=== PATIENT | female | born 1940 | race Asian ===

== ENCOUNTER 2016-07-02 13:42 | Outpatient (CLI) | payer MEDICARE, OTHER | END 2016-07-02 13:43 | disposition home or self-care (01) | DX: J20.9 Acute bronchitis, unspecified (principal) ==

== ENCOUNTER 2017-10-24 19:50 | Emergency (ER) | payer MEDICARE, OTHER ==
[2017-10-24 20:03] VITALS: BP 145/78
[2017-10-24 20:19] LABS: BILIRUBIN,URINE NEGATIVE (NEGATIVE); GLUCOSE, URINE (UA) NEGATIVE (NEGATIVE); KETONES,URINE (UA) NEGATIVE (NEGATIVE); UROBILINOGEN,URINE 0.2 (NORMAL) E.U./dL (NORMAL)
[2017-10-24 20:30] LABS: CLARITY,URINE HAZY (CLEAR)
--- NOTE | 2017-10-24 20:31 | ED Physician Documentation ---
PD HPI FEMALE - Stated complaint Stated Complaint: FEMALE - Chief complaint Chief Complaint: General - History obtained from History obtained from: Patient - History of Present Illness Timing - onset: Today (this morning) Timing - details: Gradual onset Associated symptoms: Dysuria, Urinary frequency. 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 - Past Surgical History Past Surgical History: No /STUD MASTER/MISTRESS: Dilation and currettage - Present Medications Home Medications: Ambulatory Orders Medication Instructions Recorded Confirmed Lisinopril 5 mg PO DAILY 05/29/15 11/17/15 Tamoxifen 10 mg PO DAILY 05/29/15 11/17/15 Aspirin 81 06/03/15 06/03/15 Cyclobenzaprine [Flexeril] 10 mg PO TID PRN #20 tablet 11/15/15 11/17/15 Hydrocodone/Acetaminophen 1 - 2 each PO Q6H PRN #14 tablet 11/15/15 11/17/15 [Hydrocodon-Acetaminophen 5-325] Tolterodine Tartrate [Detrol LA] 4 mg PO DAILY 11/15/15 11/17/15 HYDROcod/ACETAM 5/325 [[place] 5/325] 1 - 2 ea PO Q6H PRN #15 tablet 11/17/15 Nitrofurantoin [Macrodantin] 100 mg PO BID #10 capsule 11/17/15 Nitrofurantoin [Macrobid] 100 mg PO BID #10 capsule 10/24/17 - Allergies Allergies/Adverse Reactions: Allergies Allergy/AdvReac Type Severity Reaction Status Date / Time No Known Drug Allergies Allergy Verified 10/24/17 20:02 - Social History Does the pt smoke?: No Smoking Status: Never smoker Does the pt drink ETOH?: Yes Does the pt have substance abuse?: No - Immunizations Immunizations are current?: Yes - POLST Patient has POLST: No PD ED PE NORMAL - Vitals Vital signs reviewed: Yes - General General: Alert and oriented X 3, No acute distress, Well developed/nourished - Abdomen Abdomen: Soft, Non tender - Back Back: No CVA TTP Results - Vitals Vitals: Oxygen O2 Source Room air - Labs Labs: Microbiology 10/24/17 20:00 Urine Culture - Preliminary Urine,Clean Catch CULTURE IN PROGRESS. RESULTS TO FOLLOW. Laboratory Tests 10/24/17 20:00 Urine Color ORANGE Urine Clarity HAZY Urine pH 6.0 Ur Specific [place] <=1.005 Urine Protein Urine Glucose (UA) NEGATIVE Urine Ketones NEGATIVE Urine Occult Blood Urine Nitrite Urine Bilirubin NEGATIVE Urine Urobilinogen 0.2 (NORMAL) Ur Leukocyte Esterase Urine RBC 6-10 H Urine WBC >25 H Urine WBC Clumps PRESENT Ur Squamous Epith Cells RARE Squamous Urine Bacteria Moderate H Ur Microscopic Review INDICATED Urine Culture Comments INDICATED PD MEDICAL DECISION MAKING - ED course Complexity details: reviewed results, considered differential, d/w patient Departure - Departure Disposition: 01 Home, Self Care Clinical Impression: UTI (urinary tract infection) Condition: Good Instructions: ED UTI Cystitis Female Follow-Up: Romel Mckeon MD [Primary Care Provider] - (3-5 days if symptoms are not resolving, or if not completely resolved after finishing the antibiotic) Prescriptions: Nitrofurantoin [Macrobid] 100 mg PO BID #10 capsule Discharge Date/Time: 10/24/17 20:53
[2017-10-24 20:36] LABS: WBC CLUMPS,URINE PRESENT
[2017-10-24 20:37] LABS: BACTERIA,URINE Moderate /HPF (None Seen); SQUAMOUS EPITHELIAL CELL,UR RARE Squamous (<= Few)
[2017-10-24] MEDS ORDERED: NITROFURANTOIN MACRO 100 MG CAPSULE PO STA (20:48)
== END 2017-10-24 20:53 | disposition home or self-care (01) ==
LOC: ED 19:50
DX: N39.0 Urinary tract infection, site not specified (principal); I10 Essential (primary) hypertension; Z79.82 Long term (current) use of aspirin
CPT/HCPCS: 81001; 87086; 99283; A9270; 81003

== ENCOUNTER 2018-08-02 14:54 | Emergency (ER) | payer MEDICARE, OTHER ==
[2018-08-02 15:03] VITALS: BP 130/64
[2018-08-02 15:17] LABS: BILIRUBIN,URINE NEGATIVE (NEGATIVE); GLUCOSE, URINE (UA) NEGATIVE (NEGATIVE); KETONES,URINE (UA) NEGATIVE (NEGATIVE); LEUKOCYTE ESTERASE, URINE LARGE (NEGATIVE); NITRITE,URINE POSITIVE (NEGATIVE); OCCULT BLOOD,URINE SMALL (NEGATIVE); PH,URINE 7.5 PH (5.0-7.5); PROTEIN,URINE TRACE mg/dL (NEGATIVE); UROBILINOGEN,URINE 1 (NORMAL) E.U./dL (NORMAL)
[2018-08-02 15:18] LABS: CLARITY,URINE HAZY (CLEAR)
[2018-08-02 15:29] LABS: EPITHELIAL CELLS,UR FEW Transitional /HPF (<= Few); SQUAMOUS EPITHELIAL CELL,UR NONE SEEN (<= Few)
[2018-08-02 15:30] LABS: BACTERIA,URINE Few /HPF (None Seen)
--- NOTE | 2018-08-02 15:36 | ED Physician Documentation ---
PD HPI FEMALE - Stated complaint Stated Complaint: FEMALE - Chief complaint Chief Complaint: UTI - History obtained from History obtained from: Patient - History of Present Illness Timing - onset: How many days ago (3) Timing - duration: Days (3) Timing - details: Gradual onset Pain level max: 3 Pain level max: 3 Associated symptoms: Dysuria Contributing factors: Other (none) Similar symptoms before: Diagnosis (UTI) Review of Systems Constitutional: reports: Reviewed and negative Eyes: reports: Reviewed and negative Ears: reports: Reviewed and negative Nose: reports: Reviewed and negative Throat: reports: Reviewed and negative Cardiac: reports: Reviewed and negative Respiratory: reports: Reviewed and negative GI: reports: Reviewed and negative : reports: Reviewed and negative Skin: reports: Reviewed and negative Musculoskeletal: reports: Reviewed and negative Neurologic: reports: Reviewed and negative Psychiatric: reports: Reviewed and negative Endocrine: reports: Reviewed and negative Immunocompromised: reports: Reviewed and negative PD PAST MEDICAL HISTORY - Past Medical History Past Medical History: Yes 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: Hypertension 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 - Past Surgical History Past Surgical History: Yes /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 TECHNICIAN: Dilation and currettage - Present Medications Home Medications: Ambulatory Orders Medication Instructions Recorded Confirmed Lisinopril 5 mg PO DAILY 05/29/15 11/17/15 Tamoxifen 10 mg PO DAILY 05/29/15 11/17/15 Aspirin 81 06/03/15 06/03/15 Cyclobenzaprine [Flexeril] 10 mg PO TID PRN #20 tablet 11/15/15 11/17/15 Hydrocodone/Acetaminophen 1 - 2 each PO Q6H PRN #14 tablet 11/15/15 11/17/15 [Hydrocodon-Acetaminophen 5-325] Tolterodine Tartrate [Detrol LA] 4 mg PO DAILY 11/15/15 11/17/15 HYDROcod/ACETAM 5/325 [[place] 5/325] 1 - 2 ea PO Q6H PRN #15 tablet 11/17/15 Nitrofurantoin [Macrodantin] 100 mg PO BID #10 capsule 11/17/15 Nitrofurantoin [Macrobid] 100 mg PO BID #10 capsule 10/24/17 Nitrofurantoin Monohyd/M-Cryst 100 mg PO BID #10 capsule 08/02/18 [Macrobid 100 mg Capsule] - Allergies Allergies/Adverse Reactions: Allergies Allergy/AdvReac Type Severity Reaction Status Date / Time No Known Drug Allergies Allergy Verified 08/02/18 15:02 - Living Situation Living Situation: reports: With spouse/s.o. Living Arrangement: reports: At home - Social History Does the pt smoke?: No Smoking Status: Never smoker Does the pt drink ETOH?: Yes Does the pt have substance abuse?: No - Family History Family history: reports: Other (Reviewed and not pertinent) - Immunizations Immunizations are current?: Yes - POLST Patient has POLST: No PD ED PE NORMAL - Vitals Vital signs reviewed: Yes - General General: Alert and oriented X 3, No acute distress - HEENT HEENT: PERRL - Neck Neck: Supple, no meningeal sign - Cardiac Cardiac: RRR, No murmur - Respiratory Respiratory: Clear bilaterally - Abdomen Abdomen: Normal bowel sounds, Soft, Non tender, Non distended - Derm Derm: Warm and dry - Extremities Extremities: No deformity - Neuro Neuro: Alert and oriented X 3 - Psych Psych: Normal mood, Normal affect Results - Vitals Vitals: Vital Signs - 24 hr 08/02/18 15:01 Temperature 36.8 C Heart Rate 94 Respiratory 18 Rate Blood Pressure 130/64 O2 Saturation 95 Oxygen O2 Source Room air - Labs Labs: Laboratory Tests 08/02/18 15:05 Urine Color YELLOW Urine Clarity HAZY Urine pH 7.5 Ur Specific [place] 1.010 Urine Protein TRACE Urine Glucose (UA) NEGATIVE Urine Ketones NEGATIVE Urine Occult Blood SMALL H Urine Nitrite POSITIVE H Urine Bilirubin NEGATIVE Urine Urobilinogen 1 (NORMAL) Ur Leukocyte Esterase LARGE H Urine RBC 6-10 H Urine WBC >25 H Ur Epithelial Cells FEW Transitional Ur Squamous Epith Cells NONE SEEN Urine Bacteria Few Ur Microscopic Review INDICATED Urine Culture Comments INDICATED PD MEDICAL DECISION MAKING - ED course Complexity details: reviewed old records, reviewed results, considered differential ED course: 78-year-old female with dysuria. Urinalysis is consistent with infection. Patient discharged on Macrobid.Vitals reassuring with no sign of pyelonephritis or sepsis. Departure - Departure Disposition: 01 Home, Self Care Clinical Impression: Cystitis UTI (urinary tract infection) Qualifiers: Urinary tract infection type: acute cystitis Condition: Good Instructions: Urinary Tract Infecs Women Follow-Up: Romel Mckeon MD [Primary Care Provider] - Prescriptions: Nitrofurantoin Monohyd/M-Cryst [Macrobid 100 mg Capsule] 100 mg PO BID #10 capsule
== END 2018-08-02 15:48 | disposition home or self-care (01) ==
LOC: ED 14:54
DX: N30.00 Acute cystitis without hematuria (principal); I10 Essential (primary) hypertension; Z79.82 Long term (current) use of aspirin
CPT/HCPCS: 81001; 81003; 87086; 87181; 99283

== ENCOUNTER 2018-09-22 10:23 | Outpatient (CLI) | payer MEDICARE, OTHER ==
--- NOTE | 2018-09-22 13:12 | DEXA Report ---
Reason: DISORDER OF BONE Procedure Date: 09/22/2018 Accession Number: [id number] / [id number] Procedure: DEX - Dexa Spine and/or Hip CPT Code: FULL RESULT: EXAM: Dexa Spine and/or Hip DATE: 09/22/2018 10:58 AM CLINICAL HISTORY: DISORDER OF BONE TECHNIQUE: Dual energy x-ray absorptiometry (DXA) was performed on a NeedFeed System. Regions measured are the AP Spine, femoral neck, and if needed forearm. COMPARISON: 01/02/2016 In accordance with the International Society for Clinical Densitometry (ISCD) guidelines, data from previous exams may be reanalyzed using current recommendations and techniques. This is done to allow a more accurate basis for comparison with the current study. FINDINGS: The data for the lumbar spine is as follows: BMD (g/cm/cm) T-SCORE Z-SCORE REGION L1 0.856 -2.3 0.2 L2 0.812 -3.2 -0.7 L3 0.962 -2.0 0.5 L4 1.030 -1.4 1.1 TOTAL 0.924 -2.1 0.4 NOTE: All evaluable vertebrae are used for classification Compared to 01/02/2016, the 2.5% interval bone density loss is well within annual physiologic change. The data for the hip is as follows: BMD (g/cm/cm) T-SCORE Z-SCORE REGION Neck 0.581 -3.3 -0.8 TOTAL 0.670 -2.7 -0.3 NOTE: The femoral neck or total proximal femur, whichever is lowest, is used for classification. When compared to the 01/02/2016 examination, there has been no significant change in the femoral bone density. IMPRESSION: THE WHO CLASSIFICATION BASED ON THE INTERNATIONAL REFERENCE STANDARD IS OSTEOPOROSIS. THE FRACTURE RISK IS HIGH. RECOMMENDATION: Patients with diagnosis of osteoporosis or osteopenia should have regular bone mineral density assessment. For those eligible for Medicare, routine testing is allowed once every 2 years. Testing frequency can be increased for patients who have rapidly progressing disease or for those who are receiving medical therapy to restore bone mass. COMMENT: World Health Organization (WHO) definitions for osteoporosis and osteopenia: NORMAL BMD: T-score at -1.0 or higher, fracture risk is low OSTEOPENIA BMD: T-score between -1.0 and -2.5, fracture risk is increased. OSTEOPOROSIS BMD: T-score at -2.5 or lower, fracture risk is high. National Osteoporosis Foundation recommends: 1. Obtain adequate dietary calcium (at least 1200 mg per day) and vitamin D (400-800 international units per day). 2. Participate, as appropriate, in regular weightbearing and muscle-strengthening exercise. 3. Avoid tobacco use and reduce alcohol and caffeine intake. 4. For more detailed information see the website at www.NOF.org.
== END 2018-09-22 10:24 | disposition home or self-care (01) ==
LOC: DI 10:23
PROVIDERS: ATTEND Internal Medicine
DX: M81.0 Age-related osteoporosis without current pathological fracture (principal)
CPT/HCPCS: 77080

== ENCOUNTER 2018-10-10 08:15 | Outpatient (CLI) | payer MEDICARE, OTHER ==
--- NOTE | 2018-10-12 09:48 | Ultrasound Report ---
Reason: HTN Procedure Date: 10/10/2018 Accession Number: [id number] / [id number] Procedure: US - Aorta Screening CPT Code: FULL RESULT: EXAM: AORTIC DOPPLER ULTRASOUND EXAM DATE: 10/10/2018 08:38 AM. CLINICAL HISTORY: Hypertension. COMPARISON: None. TECHNIQUE: Real-time sonographic imaging of retroperitoneal vascular structures, including color-flow, Doppler flow and spectral analysis was performed by the nuclear technician. Multiple direct sales representative static images were saved for review. FINDINGS: Aorta: The abdominal aorta was adequately visualized. No evidence for abdominal aortic aneurysm. Visually, there is atherosclerotic disease in the abdominal aorta. Aorta: Proximal: Sagittal AP: 2 cm. Mid: Transverse: 1.5 x 1.6 cm. Distal: Transverse: 1.5 x 1.4 cm. Caliber WNL: Yes. Plaque visualized: Yes. Mid. Iliacs: Right Iliac: Transverse: 0.6 x 0.6 cm. Left Iliac: Transverse: 0.6 x 0.7 cm. Iliac Vessels: The visualized proximal common iliac arteries are normal in caliber. Other: None. IMPRESSION: Atherosclerosis without aneurysm. [facility]
== END 2018-10-10 08:16 | disposition home or self-care (01) ==
LOC: DI 08:15
PROVIDERS: ATTEND Internal Medicine
DX: I10 Essential (primary) hypertension (principal); I70.0 Atherosclerosis of aorta
CPT/HCPCS: 76706

== ENCOUNTER 2020-02-04 17:46 | Emergency (ER) | payer MEDICARE, OTHER ==
--- NOTE | 2020-02-04 19:14 | ED Physician Documentation ---
History of Present Illness - Stated complaint Stated Complaint: URI - Chief complaint Chief Complaint: General - History obtained from History obtained from: Patient - History of Present Illness Timing: How many weeks ago (1.5) Pain level max: 0 Pain level now: 0 - Additonal information Additional information: 79-year-old female presents to the emergency department complaining of clear phlegm for the past week or so. She states she felt warm today and took her temperature. Her T-max was 99.2. She is concerned about potential COVID. No known exposures. No cough. Nothing makes it better or worse. No difficulty breathing. No chest pain. No nausea or vomiting. No sore throat. 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 - Present Medications Home Medications: Ambulatory Orders Medication Instructions Recorded Confirmed Tamoxifen [(None)] 10 mg PO DAILY 05/29/15 11/17/15 lisinopriL [Lisinopril] 5 mg PO DAILY 05/29/15 11/17/15 Aspirin 81 06/03/15 06/03/15 Cyclobenzaprine [Flexeril] 10 mg PO TID PRN #20 tablet 11/15/15 11/17/15 Hydrocodone/Acetaminophen 1 - 2 each PO Q6H PRN #14 tablet 11/15/15 11/17/15 [Hydrocodon-Acetaminophen 5-325] Tolterodine Tartrate [Detrol LA] 4 mg PO DAILY 11/15/15 11/17/15 HYDROcod/ACETAM 5/325 [[place] 5/325] 1 - 2 ea PO Q6H PRN #15 tablet 11/17/15 Nitrofurantoin [Macrodantin] 100 mg PO BID #10 capsule 11/17/15 Nitrofurantoin [Macrobid] 100 mg PO BID #10 capsule 10/24/17 Nitrofurantoin Monohyd/M-Cryst 100 mg PO BID #10 capsule 08/02/18 [Macrobid 100 mg Capsule] Cetirizine [ZyrTEC] 10 mg PO DAILY #14 tablet 02/04/20 - Allergies Allergies/Adverse Reactions: Allergies Allergy/AdvReac Type Severity Reaction Status Date / Time No Known Drug Allergies Allergy Verified 02/04/20 17:55 - Social History Does the pt smoke?: No Smoking Status: Never smoker Does the pt drink ETOH?: Yes Does the pt have substance abuse?: No - Immunizations Immunizations are current?: Yes - POLST Patient has POLST: No PD ED PE NORMAL - Vitals Vital signs reviewed: Yes - General General: Alert and oriented X 3, No acute distress - HEENT HEENT: PERRL, Ears normal, Moist mucous membranes, Other - Neck Neck: Supple, no meningeal sign, No adenopathy - Cardiac Cardiac: RRR, Strong equal pulses - Respiratory Respiratory: No respiratory distress, Clear bilaterally - Abdomen Abdomen: Soft, Non tender, Non distended - Derm Derm: Warm and dry, No rash - Neuro Neuro: Alert and oriented X 3 - Psych Psych: Normal mood, Normal affect Results - Vitals Vitals: Vital Signs - 24 hr 02/04/20 02/04/20 17:50 19:26 Temperature 37.1 C Heart Rate 89 84 Respiratory 20 18 Rate Blood Pressure 166/78 H 161/86 H O2 Saturation 98 98 Oxygen O2 Source Room air PD MEDICAL DECISION MAKING - ED course Complexity details: considered differential, d/w patient ED course: Patient with what appears to be postnasal drip. She can try Zyrtec or Claritin at home. COVID testing was performed. Patient is well-appearing, nontoxic. Afebrile. No hypoxia. No respiratory distress. No indication for x-ray. Patient counseled regarding signs and symptoms for which I believe and urgent re-evaluation would be necessary. Patient with good understanding of and agreement to plan and is comfortable going home at this time This document was made in part using voice recognition software. While efforts are made to proofread this document, sound alike and grammatical errors may occur. Departure - Departure Disposition: 01 Home, Self Care Clinical Impression: Phlegm in throat Condition: Good Instructions: ED Allergy Seasonal Follow-Up: Romel Mckeon MD [Primary Care Provider] - Within 1 week Prescriptions: Cetirizine [ZyrTEC] 10 mg PO DAILY #14 tablet Comments: Use the medications as prescribed. Return if you worsen. Follow-up with your doctor for further care. The COVID tests will normally take 24 to 48 hours to return. Discharge Date/Time: 02/04/20 19:26
[2020-02-04 19:27] VITALS: BP 161/86
== END 2020-02-04 19:26 | disposition home or self-care (01) ==
LOC: ED 17:46
DX: R09.82 Postnasal drip (principal); Z20.828 Contact with and (suspected) exposure to other viral communicable diseases; I10 Essential (primary) hypertension; Z79.82 Long term (current) use of aspirin
CPT/HCPCS: 99283; 99284; U0004

== ENCOUNTER 2020-11-17 13:33 | Outpatient (CLI) | payer MEDICARE, OTHER ==
--- NOTE | 2020-11-17 14:37 | XRAY Report ---
PROCEDURE: Hand 3 View BILAT INDICATIONS: OSTEOARTHRITIS TECHNIQUE: 3 views of the hand(s) acquired. COMPARISON: None. FINDINGS: Bones: Post fusion changes are noted involving right first interphalangeal joint, second and fifth D IP joints. Severe osteoarthritic changes are noted involving bilateral first CMC joints, left second through fifth DIP joints, left second, third and fifth DIP joints, left first interphalangeal joint, right. And fourth PIP and DIP joints and right second PIP joint. There are features suggestive of ero sive osteoarthritis throughout interphalangeal joints. No acute fracture or dislocation. No gross macy dware loosening or failure.. No suspicious bony lesions. Soft tissues: No suspicious soft tissue calcifications. IMPRESSION: 1. Postsurgical changes in right hand as above. No gross hardware complication. 2. 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 Reviewed by: Marko Crook MD on 11/17/2020 2:36 PM PDT Approved by: Marko Crook MD on 11/17/2020 2:36 PM PDT Station ID: [id number]
== END 2020-11-17 13:34 | disposition home or self-care (01) ==
LOC: DI 13:33
PROVIDERS: ATTEND Internal Medicine
DX: M19.042 Primary osteoarthritis, left hand (principal); M19.041 Primary osteoarthritis, right hand

== ENCOUNTER 2021-04-15 16:16 | Emergency (ER) | payer MEDICARE, OTHER ==
[2021-04-15 16:46] LABS: BASOPHILS % (AUTO) 0.2 %; EOSINOPHILS # (AUTO) 0.1 10^3/uL (0.0-0.7); HCT - HEMATOCRIT 43.4 % (37.0-47.0); HGB - HEMOGLOBIN 14.4 g/dL (12.0-16.0); LYMPHOCYTES # (AUTO) 1.9 10^3/uL (1.5-3.5); MEAN CORPUSCULAR HEMOGLOBIN 31.9 pg (27.0-31.0); MEAN CORPUSCULAR HGB CONC 33.2 g/dL (32.0-36.0); MEAN PLATELET VOLUME 8.2 fL (7.9-10.8); MONOCYTES # (AUTO) 0.5 10^3/uL (0.0-1.0); MONOCYTES % (AUTO) 7.7 %; NEUTROPHILS # (AUTO) 3.4 10^3/uL (1.5-6.6); NEUTROPHILS % (AUTO) 58.8 %; PLT - PLATELET COUNT 243 10^3/uL (130-450); RED BLOOD COUNT 4.52 10^6/uL (4.20-5.40); RED CELL DISTRIBUTION WIDTH 11.1 % (12.0-15.0); WHITE BLOOD COUNT 5.8 x10^3/uL (4.8-10.8)
[2021-04-15 17:00] LABS: ALBUMIN 3.9 g/dL (3.2-5.5); ALBUMIN/GLOBULIN RATIO 1.2 (1.0-2.2); BILIRUBIN,TOTAL 0.5 mg/dL (0.2-1.0); CALCIUM 9.2 mg/dL (8.5-10.3); CREATININE 0.6 mg/dL (0.4-1.0); POTASSIUM 4.3 mmol/L (3.5-5.0); TOTAL PROTEIN 7.2 g/dL (6.7-8.2)
--- NOTE | 2021-04-15 17:09 | XRAY Report ---
PROCEDURE: Chest 1 View X-Ray INDICATIONS: Chest pain TECHNIQUE: One view of the chest was acquired. COMPARISON: 07/02/2016 FINDINGS: Surgical changes and devices: None. Lungs and pleura: No pleural effusions or pneumothorax. Lungs are clear. Mediastinum: The aorta is prominent and tortuous. The cardiac contours are within normal limits. Bones and chest wall: No suspicious bony lesions. Age-appropriate degenerative changes are seen. S -shaped scoliotic curvature is incidentally noted. Overlying soft tissues appear unremarkable. IMPRESSION: No acute cardiopulmonary process is seen. No significant change compared to 2017. Reviewed by: Bin Luciano MD on 04/15/2021 4:08 PM [facility] Approved by: Bin Luciano MD on 04/15/2021 4:08 PM [facility] Station ID: [id number]
--- NOTE | 2021-04-15 18:44 | ED Physician Documentation ---
History of Present Illness - Stated complaint Stated Complaint: HBP/DIZZY X3 DAYS - Chief complaint Chief Complaint: Neuro - Additonal information Additional information: 80-year-old female who has a history of hypertension presents the emergency department for feeling lightheaded, dizzy over the last 2 days. She is endorsing some right-sided neck pain as well. She typically takes lisinopril 5 mg twice daily. Over the last 2 days she has checked her blood pressures and noted that they are higher than they typically are sometimes up into the 170s over 90s. She has had no vision changes. No nausea or vomiting. She denies chest pain or shortness of air. She was discussing these blood pressures with her son and he told her that they were too high and she could have a stroke therefore he asked her to come to the ER. No tobacco or alcohol use. No previous history of myocardial infarction or CVA. Review of Systems Constitutional: denies: Fever, Chills Eyes: denies: Loss of vision, Decreased vision Ears: reports: Reviewed and negative Nose: reports: Reviewed and negative Throat: reports: Reviewed and negative Cardiac: denies: Chest pain / pressure, Palpitations Respiratory: denies: Dyspnea, Cough GI: denies: Abdominal Pain, Nausea, Vomiting : denies: Dysuria, Frequency, Hesitancy Skin: denies: Rash, Lesions Musculoskeletal: reports: Neck pain Neurologic: reports: Near syncope. 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 - Past Surgical History Past Surgical History: Yes /SPA MANAGER/ESTHETICIAN: Dilation and currettage - Present Medications Home Medications: Ambulatory Orders Medication Instructions Recorded Confirmed lisinopriL [Lisinopril] 5 mg PO DAILY 05/29/15 04/15/21 Aspirin Chewable [St Polo 81 mg PO DAILY 04/15/21 04/15/21 Aspirin] Rosuvastatin Calcium [Crestor] 5 mg PO DAILY 04/15/21 04/15/21 - Allergies Allergies/Adverse Reactions: Allergies Allergy/AdvReac Type Severity Reaction Status Date / Time No Known Drug Allergies Allergy Verified 04/15/21 16:30 - Social History Does the pt smoke?: No Smoking Status: Never smoker Does the pt drink ETOH?: Yes Does the pt have substance abuse?: No - Immunizations Immunizations are current?: Yes - POLST Patient has POLST: No PD ED PE NORMAL - General General: Alert and oriented X 3 - HEENT HEENT: Atraumatic, Ears normal, Moist mucous membranes - Neck Neck: Supple, no meningeal sign, No adenopathy - Cardiac Cardiac: RRR, No murmur - Respiratory Respiratory: No respiratory distress - Abdomen Abdomen: Normal bowel sounds, Soft - Back Back: No CVA TTP, No spinal TTP - Derm Derm: Normal color, Warm and dry, No rash - Extremities Extremities: No deformity, No tenderness to palpate, Normal ROM s pain - Neuro Neuro: Alert and oriented X 3, battery tester and repairer 2-12 intact, No motor deficit, No sensory deficit, Normal speech, Other (normal gait, finger nose and rapid alternating. ) Eye Opening: Spontaneous Motor: Obeys Commands Verbal: Oriented GCS Score: 15 - Psych Psych: Normal mood Results - Vitals Vitals: Vital Signs - 24 hr 04/15/21 04/15/21 16:27 18:16 Temperature 37.0 C Heart Rate 92 94 Respiratory 16 16 Rate Blood Pressure 162/85 H 145/80 H O2 Saturation 98 99 Oxygen O2 Source Room air - EKG (time done) 1736 Rate: Rate (enter#) (89) Rhythm: NSR Mentor: Normal Intervals: Normal MI. No: Prolonged QT QRS: Normal Ischemia: Normal ST segments Compare to prior EKG: Old EKG unavailable Computer interpretation: Agree with computer - Labs Labs: Laboratory Tests 04/15/21 04/15/21 04/15/21 16:41 16:41 16:41 WBC 5.8 RBC 4.52 Hgb 14.4 Hct 43.4 MCV 96.0 MCH 31.9 H MCHC 33.2 RDW 11.1 L Plt Count 243 MPV 8.2 Neut # (Auto) 3.4 Lymph # (Auto) 1.9 Cass # (Auto) 0.5 Eos # (Auto) 0.1 Baso # (Auto) 0.0 Absolute Nucleated RBC 0.00 Nucleated RBC % 0.0 Sodium 130 L Potassium 4.3 Chloride 94 L Carbon Dioxide 27 Anion Gap 9.0 BUN 14 Creatinine 0.6 Estimated GFR (MDRD) 96 Glucose 110 H Calcium 9.2 Total Bilirubin 0.5 AST 26 ALT 20 Alkaline Phosphatase 48 Troponin I High Sens 6.5 Total Protein 7.2 Albumin 3.9 Globulin 3.3 Albumin/Globulin Ratio 1.2 Lipase 35 - Rads (name of study) CXR Radiology: Final report received (no acute process) CT head Radiology: Final report received (no acute intracranial process) PD MEDICAL DECISION MAKING - ED course Complexity details: reviewed results, re-evaluated patient ED course: 80-year-old female presents the emergency department for evaluation of elevated blood pressures for the last 2 days as well as feeling somewhat lightheaded and dizzy. She typically takes lisinopril 5 mg twice daily and has not missed any doses. No tobacco or alcohol use. She discussed her elevated blood pressure readings with her son who advised her to come to the ER because he was afraid she would have a stroke. She denies any headache, no focal neuro deficits or changes in gait. Screening EKG is nonischemic and unremarkable for age. Chest x-ray and screening labs are also unremarkable. Patient was very fixated that she would have a stroke and out of an abundance of caution a CT of the head was completed that did not show any abnormal findings. In addition to this she had a nonfocal neuro exam and a normal cerebellar exam and gait. Her blood pressure was modestly elevated here in the ER in the 160s. Given DALILA recommendations I did not make adjustments to her blood pressure but have advised her to have close follow-up with her primary care provider for longer- term management. Emergent return precautions were discussed. Departure - Departure Disposition: 01 Home, Self Care Clinical Impression: Light-headed feeling, Neck pain on right side Hypertension Qualifiers: Hypertension type: unspecified Qualified Code(s): I10 - Essential (primary) hypertension Condition: Stable Record reviewed to determine appropriate education?: Yes Instructions: Hypertension Control Follow-Up: Romel Mckeon MD [Primary Care Provider] - Comments: Bella Menezes you were seen in the emergency department today for concerns of elevated blood pressure and feeling lightheaded. Your screening labs are all essentially normal. Your blood count is normal you are not having a heart attack. The chest x-ray was normal. We did do a CAT scan of your head that also showed no abnormal findings. Your blood pressure is modestly elevated today in the emergency department in the 160s. Though this is elevated we do not make recommendations for changing your blood pressure at this time. Please follow-up with Dr. Brooks you to discuss your blood pressure readings. I encourage you to continue to take the lisinopril as you are and document your blood pressures 1 hour after taking the lisinopril and at night before you go to bed. If any point you have sudden severe chest pain, have any fainting spells or become short of breath or develop a suddenly severe headache then please return immediately to the ER for second evaluation
--- NOTE | 2021-04-15 19:05 | CT Report ---
PROCEDURE: HEAD WO INDICATIONS: dizzy, headache TECHNIQUE: Noncontrast 4.5 mm thick angled axial sections acquired from the foramen magnum to the vertex. For r adiation dose reduction, the following was used: automated exposure control, adjustment of mA and/or kV according to patient size. COMPARISON: None. FINDINGS: Image quality: Excellent. CSF spaces: Basal cisterns are patent. No extra-axial fluid collections. There is mild cerebral vol ume loss with prominence of ventricles and sulci. Brain: No intracranial hemorrhage, mass, or mass effect. Clifford-white matter interface is normal. Skull and face: Calvarium and visualized facial bones are intact, without suspicious lesions. Sinuses: Visualized sinuses and mastoids are clear. IMPRESSION: 1. No acute intracranial abnormality. Reviewed by: Elias Thompson MD on 04/15/2021 7:04 PM [facility] Approved by: Elias Thompson MD on 04/15/2021 7:04 PM [facility] Station ID: [id number]
[2021-04-15 19:35] VITALS: BP 152/82
== END 2021-04-15 19:25 | disposition home or self-care (01) ==
LOC: ED 16:16
DX: R42 Dizziness and giddiness (principal); M54.2 Cervicalgia; I10 Essential (primary) hypertension
CPT/HCPCS: 36415; 80053; 83690; 84484; 85025; 93005; 99284

== ENCOUNTER 2022-06-17 07:26 | Outpatient (CLI) | payer MEDICARE, OTHER ==
[2022-06-17 12:40] LABS: BASOPHILS % (AUTO) 0.2 %; EOSINOPHILS # (AUTO) 0.1 10^3/uL (0.0-0.7); EOSINOPHILS % (AUTO) 1.4 %; HCT - HEMATOCRIT 43.6 % (37.0-47.0); LYMPHOCYTES # (AUTO) 1.5 10^3/uL (1.5-3.5); LYMPHOCYTES % (AUTO) 35.1 %; MEAN CORPUSCULAR HEMOGLOBIN 30.8 pg (27.0-31.0); MEAN CORPUSCULAR HGB CONC 32.1 g/dL (32.0-36.0); MEAN CORPUSCULAR VOLUME 95.8 fL (81.0-99.0); MEAN PLATELET VOLUME 9.4 fL (7.9-10.8); MONOCYTES # (AUTO) 0.5 10^3/uL (0.0-1.0); MONOCYTES % (AUTO) 11.3 %; NEUTROPHILS # (AUTO) 2.2 10^3/uL (1.5-6.6); NEUTROPHILS % (AUTO) 51.8 %; PLT - PLATELET COUNT 263 10^3/uL (130-450); RED BLOOD COUNT 4.55 10^6/uL (4.20-5.40); RED CELL DISTRIBUTION WIDTH 11.5 % (12.0-15.0); WHITE BLOOD COUNT 4.3 x10^3/uL (4.8-10.8)
[2022-06-17 13:06] LABS: THYROID STIMULATING HORMONE 1.17 uIU/mL (0.34-5.60)
[2022-06-17 13:17] LABS: ALBUMIN 4.1 g/dL (3.2-5.5); ALBUMIN/GLOBULIN RATIO 1.4 (1.0-2.2); ALKALINE PHOSPHATASE 50 IU/L (42-121); ALT ALANINE AMINOTRANSFERASE 21 IU/L (10-60); AST ASPARTATE AMINOTRANSFERASE 27 IU/L (10-42); BILIRUBIN,TOTAL 0.9 mg/dL (0.2-1.0); BUN - BLOOD UREA NITROGEN 13 mg/dL (6-20); CALCIUM 9.1 mg/dL (8.5-10.3); CARBON DIOXIDE - CO2 27 mmol/L (21-32); CHLORIDE 101 mmol/L (101-111); CHOL/HDL RATIO 2.3 (<4.4); CHOLESTEROL 176 mg/dL; CREATININE 0.6 mg/dL (0.4-1.0); CRP - C-REACTIVE PROTEIN < 1.0 mg/dL (0-1.0); GFR - MDRD 96 (>89); GLUCOSE 99 mg/dL (70-100); HDL CHOLESTEROL 75 mg/dL; LDL CHOLESTEROL,CALCULATED 84 mg/dL; LDL/HDL RATIO 1.1 (<4.4); POTASSIUM 4.2 mmol/L (3.5-5.0); SODIUM 134 mmol/L (135-145); TOTAL PROTEIN 7.1 g/dL (6.7-8.2); TRIGLYCERIDES 86 mg/dL; VLDL CHOLESTEROL 17 mg/dL
[2022-06-17 14:19] LABS: RHEUMATOID FACTOR NEGATIVE (Negative)
== END 2022-06-17 07:27 | disposition home or self-care (01) ==
LOC: LAB.N 07:26
PROVIDERS: ATTEND Nurse Practitioner Family
DX: I10 Essential (primary) hypertension (principal); E78.5 Hyperlipidemia, unspecified; M19.90 Unspecified osteoarthritis, unspecified site; Z79.899 Other long term (current) drug therapy
CPT/HCPCS: 36415; 80053; 80061; 81599; 83721; 84443; 85025; 85651; 86038; 86140; 86200; 86225; 86235; 86430

== ENCOUNTER 2022-06-25 09:01 | Outpatient (CLI) | payer MEDICARE, OTHER ==
--- NOTE | 2022-06-25 18:16 | Ultrasound Report ---
PROCEDURE: Ankle Brachial Index INDICATIONS: CHRONIC VASCULAR INSUFFICIENCY TECHNIQUE: Ankle-brachial indices were obtained bilaterally and recorded. COMPARISONS: None. FINDINGS: Right ankle brachial index (DOMINGA): 1.1 Left ankle brachial index (DOMINGA): 1.2 Healing potential: Ankle pressures >55 mm Hg in non-diabetics and >80 mm Hg in diabetics are likely to achieve primary h ealing of ischemic foot ulcers. Toe pressures >30 mm Hg are likely to achieve primary healing of ischemic foot ulcers, toe or transme tatarsal amputations. IMPRESSION: Normal bilateral ankle-brachial indices Reviewed by: John Cuellar MD on 06/25/2022 6:15 PM PST Approved by: John Cuellar MD on 06/25/2022 6:15 PM PST Station ID: [id number]
== END 2022-06-25 09:02 | disposition home or self-care (01) ==
LOC: DI 09:01
PROVIDERS: ATTEND Nurse Practitioner Family
DX: I99.8 Other disorder of circulatory system (principal)
CPT/HCPCS: 93922

== ENCOUNTER 2022-07-25 12:48 | Emergency (ER) | payer MEDICARE, OTHER ==
[2022-07-25 13:04] VITALS: BP 90/70
[2022-07-25] MEDS ORDERED: PROPARACAINE 0.5% OPHTH DROPS 15 ML LEFTEYE STA (13:12)
--- NOTE | 2022-07-25 13:20 | ED Physician Documentation ---
PD HPI OPHTHO - Stated complaint Stated Complaint: L EYE BLURRY VISION/PX - Chief complaint Chief Complaint: Heent - History obtained from History obtained from: Patient - History of Present Illness Timing - onset: Enter time (829), Today Timing - duration: Hours Timing - details: Abrupt onset, Still present Location: Left Quality / character: Itching, Burning, Sharp Associated symptoms: Redness, FB sensation Contributing factors: Chemical exposure, base Similar symptoms before: Has not had sx before Recently seen: Not recently seen - Additional information Additional information: Previously well Bella Soliz was cleaning her bathtub this morning with bleach solution when some splashed up into her left eye. She was able to immediately rinsed the eye with water but continues to have some burning sensation to her eye and a foreign body sensation. She has some blurring of vision from that eye as well. She is not up to date on her tetanus . Review of Systems Constitutional: denies: Fever Eyes: reports: Irritation. 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: Dilation and currettage - Present Medications Home Medications: Ambulatory Orders Medication Instructions Recorded Confirmed lisinopriL [Lisinopril] 5 mg PO DAILY 05/29/15 04/15/21 Aspirin Chewable [St Polo 81 mg PO DAILY 04/15/21 04/15/21 Aspirin] Rosuvastatin Calcium [Crestor] 5 mg PO DAILY 04/15/21 04/15/21 Neomycin/Poly/Dex Ophth Drops 1 drops LEFTEYE QID #5 ml 07/25/22 [Maxitrol Ophth Drops] - Allergies Allergies/Adverse Reactions: Allergies Allergy/AdvReac Type Severity Reaction Status Date / Time No Known Drug Allergies Allergy Verified 04/15/21 16:30 - Social History Does the pt smoke?: No Smoking Status: Never smoker Does the pt drink ETOH?: Yes Does the pt have substance abuse?: No - Immunizations Immunizations are current?: Yes - POLST Patient has POLST: No PD ED PE NORMAL - Vitals Vital signs reviewed: Yes (normal ) - General General: Alert and oriented X 3, No acute distress, Well developed/nourished - HEENT HEENT: Atraumatic, PERRL, EOMI, Other (scleral injection to the left sclera and ? clouding of the cornea) - Respiratory Respiratory: No respiratory distress - Derm Derm: Normal color, Warm and dry, No rash - Extremities Extremities: No deformity, No edema - Neuro Neuro: Alert and oriented X 3, grocery packer 2-12 intact, No motor deficit, No sensory deficit, Normal speech Eye Opening: Spontaneous Motor: Obeys Commands Verbal: Oriented GCS Score: 15 - Psych Psych: Normal mood, Normal affect Results - Vitals Vitals: Vital Signs - 24 hr 07/25/22 13:00 Temperature 36.9 C Heart Rate 93 Respiratory 14 Rate Blood Pressure 90/70 O2 Saturation 99 Oxygen O2 Source Room air PD Medical Decision Making - ED course Complexity details: reviewed results, re-evaluated patient, considered differential, d/w patient ED course: 82-year-old female with persistent symptoms of eye irritation after an exposure to bleach presents to the emergency department with foreign body sensation and irritation to the left sclera. Opthane is administered and the patient's left eye is irrigated with a liter of saline. Following that the pH is checked as 7.0. symptoms are mostly resolved. The patient is updated on her tetanus. Departure - Departure Disposition: 01 Home, Self Care Clinical Impression: Chemical conjunctivitis of left eye Condition: Stable Instructions: ED Chemical Conjunctivitis Follow-Up: Saud Quiroga MD [Provider Admit Priv/Credential] - Prescriptions: Neomycin/Poly/Dex Ophth Drops [Maxitrol Ophth Drops] 1 drops LEFTEYE QID #5 ml Comments: Bella today your eye was burned by bleach. We have thoroughly rinsed your eye and the reaction should be arrested. Use the drops prescribed for the next 2 days. They have been e-scribed to the [facility] in [place]. If you have trouble with your vision or develop pain or cloudiness to the cornea follow-up with Dr. Quiroga. Discharge Date/Time: 07/25/22 14:55
[2022-07-25] MEDS ORDERED: TETANUS/DIPHTHERIA/PERTUSSIS 0.5 ML SYRINGE IM ONE (14:41)
== END 2022-07-25 14:55 | disposition home or self-care (01) ==
LOC: ED 12:48
DX: H10.212 Acute toxic conjunctivitis, left eye (principal); T50.995A Adverse effect of other drugs, medicaments and biological substances, initial encounter; Y92.002 Bathroom of unspecified non-institutional (private) residence as the place of occurrence of the external cause
CPT/HCPCS: 90471; 90715; 99283; J3490

== ENCOUNTER 2022-12-19 14:04 | Outpatient (CLI) | payer MEDICARE, OTHER ==
--- NOTE | 2022-12-19 15:51 | DEXA Report ---
PROCEDURE: Dexa Spine and/or Hip INDICATIONS: POST MENOPAUSAL TECHNIQUE: Dual energy x-ray absorptiometry (DXA) was performed on a TouchPo Android POS System. Regions measur ed are the AP Spine, femoral neck, and if needed forearm. COMPARISON: DEXA, . FINDINGS: Lumbar Spine: Bone Mineral Density 0.994 g/cm/cm,T score -1.6. Left Femoral Neck: Bone Mineral Density 0.567 g/cm/cm, T score -3.4. Left Hip: Bone Mineral Density 0.659 g/cm/cm,T score -2.8. 2. Compared with the last exam dated , the patient's bone density in lumbar spine has increas ed by 7.6%. The patient's bone density in left hip is not significantly changed by statistical analys is. Impression: 1. By WHO criteria, this patient has has osteoporosis. 2. Compared with the last exam, the patient's bone density in lumbar spine has increased by 7.6%. The patient's bone density in left hip is not significantly changed. Patients with diagnosis of osteoporosis or osteopenia should have regular bone mineral density assess ment. For those eligible for Medicare, routine testing is allowed once every 2 years. Testing frequ ency can be increased for patients who have rapidly progressing disease or for those who are receivin g medical therapy to restore bone mass. Reviewed by: Orlando Strong MD on 12/19/2022 3:50 PM PDT Approved by: Orlando Strong MD on 12/19/2022 3:50 PM PDT Station ID: [id number]
== END 2022-12-19 14:05 | disposition home or self-care (01) ==
LOC: DI 14:04
PROVIDERS: ATTEND Nurse Practitioner Family
DX: Z78.0 Asymptomatic menopausal state (principal); M81.0 Age-related osteoporosis without current pathological fracture

== ENCOUNTER 2023-01-07 14:36 | Outpatient (CLI) | payer MEDICARE, OTHER ==
[2023-01-07 15:00] LABS: CREATININE 0.6 mg/dL (0.6-1.3)
--- NOTE | 2023-01-08 11:11 | MRI Report ---
PROCEDURE: IAC'S W/WO INDICATIONS: ASYMMETRICAL SENSORINEURAL HEARING LOSS CONTRAST: 4.4ml gadavist TECHNIQUE: Noncontrast sagittal T1 spin echo, axial FLAIR, axial gradient echo, axial diffusion and ADC through the brain. Axial thin-slice 3D CISS, coronal balanced GE, axial T1 spin echo with fat saturation thr ough the internal auditory canals. After the administration of contrast, thin slice axial and noland l T1 spin echo with fat saturation through the internal auditory canals, and axial T1 spin echo with fat saturation through the brain. COMPARISON: None. FINDINGS: Image quality: Excellent. Cerebellopontine angles: No cerebellopontine angle masses. Inner ear structures appear normally for med. No suspicious enhancement in the internal auditory canal or along the course of the 7th cranial nerve. CSF spaces: Ventricles are normal in size and shape. No extra-axial fluid collections. Basal ciste rns are patent. Brain: No intracranial bleeds or mass effects. Clifford-white matter interface is intact. No abnormal intracranial enhancement. Diffusion weighted images demonstrate no acute ischemic insults. There are T2/FLAIR hyperintensities within the deep and periventricular white matter, nonspecific and likely r epresenting chronic microvascular ischemic change. Mild age-related global volume loss. Brainstem doreen ears normal. Normal intravascular flow voids are present. Skull and face: Calvarial marrow signal is normal. Orbits appear normal. Sinuses: Sinuses and mastoids are clear. IMPRESSION: The internal auditory canals are normal in appearance bilaterally. No masses or abnormal enhancement. No acute intracranial abnormalities. Reviewed by: Vernon Wiggins MD on 01/08/2023 11:09 AM PDT Approved by: Vernon Wiggins MD on 01/08/2023 11:09 AM PDT Station ID: [id number]
== END 2023-01-07 14:37 | disposition home or self-care (01) ==
LOC: LAB 14:36
PROVIDERS: ATTEND Otolaryngology
DX: H90.3 Sensorineural hearing loss, bilateral (principal)
CPT/HCPCS: 36415; 70553; 82565; A9585

== ENCOUNTER 2023-02-25 07:05 | Outpatient (CLI) | payer MEDICARE, OTHER ==
[2023-02-25 12:44] LABS: BASOPHILS % (AUTO) 0.2 %; EOSINOPHILS # (AUTO) 0.1 10^3/uL (0.0-0.7); EOSINOPHILS % (AUTO) 1.8 %; HCT - HEMATOCRIT 43.7 % (37.0-47.0); HGB - HEMOGLOBIN 14.4 g/dL (12.0-16.0); LYMPHOCYTES # (AUTO) 1.5 10^3/uL (1.5-3.5); LYMPHOCYTES % (AUTO) 30.7 %; MEAN CORPUSCULAR HEMOGLOBIN 32.3 pg (27.0-31.0); MEAN PLATELET VOLUME 9.5 fL (7.9-10.8); MONOCYTES # (AUTO) 0.5 10^3/uL (0.0-1.0); MONOCYTES % (AUTO) 9.6 %; NEUTROPHILS # (AUTO) 2.8 10^3/uL (1.5-6.6); NEUTROPHILS % (AUTO) 57.7 %; PLT - PLATELET COUNT 267 10^3/uL (130-450); RED BLOOD COUNT 4.46 10^6/uL (4.20-5.40); RED CELL DISTRIBUTION WIDTH 11.5 % (12.0-15.0); WHITE BLOOD COUNT 4.9 x10^3/uL (4.8-10.8)
[2023-02-25 13:04] LABS: ALBUMIN 4.3 g/dL (3.2-5.5); ALBUMIN/GLOBULIN RATIO 1.5 (1.0-2.2); ALKALINE PHOSPHATASE 51 IU/L (42-121); ALT ALANINE AMINOTRANSFERASE 18 IU/L (10-60); AST ASPARTATE AMINOTRANSFERASE 25 IU/L (10-42); BILIRUBIN,TOTAL 0.8 mg/dL (0.2-1.0); BUN - BLOOD UREA NITROGEN 12 mg/dL (6-20); CALCIUM 9.3 mg/dL (8.5-10.3); CARBON DIOXIDE - CO2 27 mmol/L (21-32); CHLORIDE 102 mmol/L (101-111); CHOL/HDL RATIO 2.1 (<4.4); CHOLESTEROL 168 mg/dL; CREATININE 0.5 mg/dL (0.6-1.3); GFR - MDRD 118 (>89); GLUCOSE 107 mg/dL (74-104); HDL CHOLESTEROL 80 mg/dL; LDL CHOLESTEROL,CALCULATED 67 mg/dL; LDL/HDL RATIO 0.8 (<4.4); POTASSIUM 4.1 mmol/L (3.5-4.5); SODIUM 134 mmol/L (135-145); TOTAL PROTEIN 7.2 g/dL (6.4-8.9); TRIGLYCERIDES 103 mg/dL (48-352); VLDL CHOLESTEROL 21 mg/dL
[2023-02-25 13:16] LABS: THYROID STIMULATING HORMONE 1.29 uIU/mL (0.34-5.60)
== END 2023-02-25 07:06 | disposition home or self-care (01) ==
LOC: LAB.N 07:05
PROVIDERS: ATTEND Nurse Practitioner Family
DX: I10 Essential (primary) hypertension (principal); E78.5 Hyperlipidemia, unspecified; Z79.899 Other long term (current) drug therapy
CPT/HCPCS: 36415; 80053; 80061; 83721; 84443; 85025

== ENCOUNTER 2023-05-12 12:27 | Emergency (ER) | payer MEDICARE, OTHER ==
[2023-05-12 12:40] VITALS: O2SAT 99
[2023-05-12] MEDS ORDERED: IBUPROFEN 400 MG TABLET PO STA (12:59)
--- NOTE | 2023-05-12 13:15 | ED Physician Documentation ---
History of Present Illness - Stated complaint Stated Complaint: LT SIDE BODY PX - Chief complaint Chief Complaint: Ext Problem - History obtained from History obtained from: Patient - History of Present Illness Timing: How many days ago (3) Pain level max: 5 Pain level now: 3 - Additonal information Additional information: Patient is an 82-year-old female who presents to the emergency department left shoulder pain for the past several days after lifting cases of water. She states that she also has left low back pain that occasionally radiates down the left leg. No loss of bowel or bladder control. Worse with movement, better with Tylenol and rest. No fevers. No chills. No numbness or tingling. No headache. 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 - Past Surgical History Past Surgical History: Yes /ASSEMBLY RIVETER: Dilation and currettage - Present Medications Home Medications: Ambulatory Orders Medication Instructions Recorded Confirmed lisinopriL [Lisinopril] 5 mg PO DAILY 05/29/15 04/15/21 Aspirin Chewable [St Polo 81 mg PO DAILY 04/15/21 04/15/21 Aspirin] Rosuvastatin Calcium [Crestor] 5 mg PO DAILY 04/15/21 04/15/21 Neomycin/Poly/Dex Ophth Drops 1 drops LEFTEYE QID #5 ml 07/25/22 [Maxitrol Ophth Drops] Ibuprofen [Motrin] 400 mg PO Q6H PRN #30 tablet 05/12/23 - Allergies Allergies/Adverse Reactions: Allergies Allergy/AdvReac Type Severity Reaction Status Date / Time No Known Drug Allergies Allergy Verified 05/12/23 12:39 - Social History Does the pt smoke?: No Smoking Status: Never smoker Does the pt drink ETOH?: No Does the pt have substance abuse?: No - Immunizations Immunizations are current?: Yes - POLST Patient has POLST: No PD ED PE NORMAL - Vitals Vital signs reviewed: Yes - General General: Alert and oriented X 3, No acute distress - HEENT HEENT: Atraumatic, PERRL, Moist mucous membranes - Neck Neck: Supple, no meningeal sign, No bony TTP - Cardiac Cardiac: RRR, Strong equal pulses - Respiratory Respiratory: No respiratory distress, Clear bilaterally - Abdomen Abdomen: Soft, Non tender, Non distended - Back Back: No spinal TTP (No midline tenderness to palpation or percussion. No step- off or deformity.) - Derm Derm: Warm and dry - Extremities Extremities: No edema, No calf tenderness / cord, Other (Full range of motion of the left shoulder, mild pain with range of motion.) - Neuro Neuro: Alert and oriented X 3, No motor deficit, No sensory deficit, Other (Normal bilateral lower extremity patellar and ankle jerk reflexes. Normal great toe extension bilaterally. no saddle anesthesia) - Psych Psych: Normal mood, Normal affect Results - Vitals Vitals: Vital Signs - 24 hr 05/12/23 05/12/23 05/12/23 12:34 12:38 14:01 Temperature 36.1 C L 36.8 C 36.6 C Heart Rate 84 84 82 Respiratory 16 16 16 Rate Blood Pressure 138/80 H 138/80 H 130/86 H O2 Saturation 99 99 99 Oxygen O2 Source Room air - Rads (name of study) Left shoulder x-ray Relevant Findings:: Final report received, See rad report Lumbar spine x-ray Relevant Findings:: Final report received, See rad report PD Medical Decision Making - ED course Complexity details: considered differential, d/w patient ED course: 82-year-old female with what appears to be osteoarthritis of the lumbar spine and left back. Given Motrin here and pain resolved. Ambulating without any difficulty. No focal neurological deficits. No evidence of cauda equina, epidural abscess, acute fracture, dislocation. No skin changes. No signs of infection. We will place her on Motrin for home and have her follow-up with her PCP for further care of her arthritis. Patient counseled regarding signs and symptoms for which I believe and urgent re-evaluation would be necessary. Patient with good understanding of and agreement to plan and is comfortable going home at this time This document was made in part using voice recognition software. While efforts are made to proofread this document, sound alike and grammatical errors may occur. Departure - Departure Disposition: 01 Home, Self Care Clinical Impression: Osteoarthritis Qualifiers: Osteoarthritis location: unspecified site Osteoarthritis type: unspecified Qualified Code(s): M19.90 - Unspecified osteoarthritis, unspecified site Condition: Good Instructions: ED Degenerative Joint Disease Follow-Up: Elmira Oquendo ARNP [Primary Care Provider] - Within 1 week Prescriptions: Ibuprofen [Motrin] 400 mg PO Q6H PRN #30 tablet PRN Reason: pain Comments: Your prescription was sent to the [facility] pharmacy. You do have arthritis in your back and in your shoulder. This is likely causing your pain. Please follow-up with your doctor for further care, they may want to refer you to physical therapy to help with your arthritis. Forms: PCP List Discharge Date/Time: 05/12/23 14:01
--- NOTE | 2023-05-12 13:33 | XRAY Report ---
PROCEDURE: Shoulder 3 View LT INDICATIONS: L shoulder pain TECHNIQUE: 3 views of the shoulder were acquired. COMPARISON: None. FINDINGS: Bones: No fractures or dislocations. No suspicious bony lesions. Visualized ribs appear intact. Periarticular osteophyte formation at the acromioclavicular and glenohumeral joints. Soft tissues: No suspicious soft tissue calcifications. The visualized lungs are within normal limi ts. IMPRESSION: Osteoarthritis. No acute fracture. No osseous lesion. If symptoms and/or clinical suspici on for pathology continue, further assessment with repeat plain films, or advanced imaging (e.g., CT, MRI, or bone scan) is recommended for further assessment. Reviewed by: Berta Aviles MD on 05/12/2023 1:32 PM [facility] Approved by: Berta Aviles MD on 05/12/2023 1:32 PM [facility] Station ID: [id number]
--- NOTE | 2023-05-12 13:37 | XRAY Report ---
PROCEDURE: Lumbar Spine 2 View INDICATIONS: low back pain TECHNIQUE: 3 views of the lumbar spine were acquired. COMPARISON: None. FINDINGS: Bones: 5 [id number] vertebrae are present. There is leftward scoliotic curvature with apex at L3-4. There is trace retrolisthesis of L2 on L3, grade 1 anterolisthesis of L4 on L5 measuring 8 mm g rade 1 anterolisthesis of L5 on S1 measuring 9 mm. There is appearance of pars defect at L5. Multilev el disc and foraminal narrowing are present most severe at L5-S1. No vertebral body compression fract ures. No suspicious bony lesions. Soft tissues: Overlying bowel gas pattern is normal. No suspicious soft tissue calcifications. IMPRESSION: Multilevel degenerative changes including prominent disc and foraminal narrowing at L5-S1. Grade 1 anterolisthesis of L4 on L5 and L5 on S1 with pars defect at L5. Reviewed by: Sade Reynoso MD on 05/12/2023 1:35 PM PST Approved by: Sade Reynoso MD on 05/12/2023 1:35 PM PST Station ID: [id number]
[2023-05-12 14:12] VITALS: BP 130/86
== END 2023-05-12 14:01 | disposition home or self-care (01) ==
LOC: ED 12:27
DX: M19.90 Unspecified osteoarthritis, unspecified site (principal); I10 Essential (primary) hypertension
CPT/HCPCS: 72100; 73030; 99283; A9270

== ENCOUNTER 2023-05-19 16:51 | Emergency (ER) | payer MEDICARE, OTHER ==
[2023-05-19 17:17] VITALS: O2SAT 100
--- NOTE | 2023-05-19 17:32 | XRAY Report ---
PROCEDURE: Chest 1 View X-Ray INDICATIONS: Chest Pain TECHNIQUE: One view of the chest was acquired. COMPARISON: None. FINDINGS: Surgical changes and devices: None. Lungs and pleura: No pleural effusions or pneumothorax. Lungs are clear. Mediastinum: Aortic arch calcification is seen. Heart size is normal. Bones and chest wall: No suspicious bony lesions. Overlying soft tissues appear unremarkable. IMPRESSION: No acute cardiopulmonary process. Reviewed by: Marko Crook MD on 05/19/2023 5:31 PM PST Approved by: Marko Crook MD on 05/19/2023 5:31 PM [facility] Station ID: [id number]
--- NOTE | 2023-05-19 17:50 | ED Physician Documentation ---
PD HPI UPPER EXT INJURY - Stated complaint Stated Complaint: LT BODY PX/SENT BY PCP - Chief complaint Chief Complaint: Ext Problem - History obtained from History obtained from: Patient - Additonal information Additional information: She developed shoulder pain after lifting water bottles. Saw my partner and diagnosed with osteoarthritis. Was taking ibuprofen but it was not that helpful. She went to the walk-in clinic today and they sent her here to do a cardiac workup to make sure it was not her heart. There is no chest pain or trouble breathing. 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 - Past Surgical History Past Surgical History: Yes /DOG LICENSER: Dilation and currettage - Present Medications Home Medications: Ambulatory Orders Medication Instructions Recorded Confirmed lisinopriL [Lisinopril] 5 mg PO DAILY 05/29/15 04/15/21 Aspirin Chewable [[place] 81 mg PO DAILY 04/15/21 04/15/21 Aspirin] Rosuvastatin Calcium [Crestor] 5 mg PO DAILY 04/15/21 04/15/21 Neomycin/Poly/Dex Ophth Drops 1 drops LEFTEYE QID #5 ml 07/25/22 [Maxitrol Ophth Drops] Ibuprofen [Motrin] 400 mg PO Q6H PRN #30 tablet 05/12/23 HYDROcod/ACETAM 5/325 [[place] 5/325] 0.5 tab PO Q6H PRN #15 tablet 05/19/23 - Allergies Allergies/Adverse Reactions: Allergies Allergy/AdvReac Type Severity Reaction Status Date / Time No Known Drug Allergies Allergy Verified 05/12/23 12:39 - Social History Does the pt smoke?: No Smoking Status: Never smoker Does the pt drink ETOH?: Yes Does the pt have substance abuse?: No - Immunizations Immunizations are current?: Yes - POLST Patient has POLST: No PD ED PE NORMAL - Vitals Vital signs reviewed: Yes - General General: Alert and oriented X 3, No acute distress - HEENT HEENT: PERRL, EOMI - Neck Neck: Supple, no meningeal sign, No bony TTP - Cardiac Cardiac: RRR, No murmur - Respiratory Respiratory: No respiratory distress, Clear bilaterally - Abdomen Abdomen: Non tender - Extremities Extremities: Other (The left shoulder is not tender but she is not not able to abduct it much more than about 100 degrees. She has pain with supraspinatus testing but her strength is good. Normal radial pulses.) - Neuro Neuro: Alert and oriented X 3, Normal speech Results - Vitals Vitals: Vital Signs - 24 hr 05/19/23 17:07 Temperature 36.2 C L Heart Rate 87 Respiratory 18 Rate Blood Pressure 165/76 H O2 Saturation 100 Oxygen O2 Source Room air - EKG (time done) 1805 EKG releavant findings:: EKG personally interpreted by author of this note. Relevant findings are: Rate: Rate (enter#) (83) Rhythm: NSR [place]: Normal Intervals: Normal [place] QRS: Normal Ischemia: Normal ST segments - Labs Labs: Laboratory Tests 05/19/23 05/19/23 17:54 17:54 WBC 6.3 RBC 4.53 Hgb 14.3 Hct 41.9 MCV 92.5 MCH 31.6 H MCHC 34.1 RDW 11.2 L Plt Count 261 MPV 8.2 Neut # (Auto) 3.7 Lymph # (Auto) 1.9 Stewart # (Auto) 0.6 Eos # (Auto) 0.1 Baso # (Auto) 0.0 Absolute Nucleated RBC 0.00 Nucleated RBC % 0.0 Sodium 132 L Potassium 4.1 Chloride 100 L Carbon Dioxide 26 Anion Gap 6.0 BUN 10 Creatinine 0.4 L Estimated GFR (MDRD) 153 Glucose 96 Calcium 9.4 Total Bilirubin 0.6 AST 26 ALT 19 Alkaline Phosphatase 45 Troponin I High Sens 5.2 Total Protein 7.3 Albumin 4.4 Globulin 2.9 Albumin/Globulin Ratio 1.5 Lipase 21 - Rads (name of study) 1v cxr Relevant Findings:: Final report received, EMP independent interpretation of test PD Medical Decision Making - ED course ED course: She presents with left shoulder pain referred from the clinic to rule out cardiac cause. Troponin and EKG were unremarkable. CBC and CMP were unremarkable. Departure - Departure Disposition: 01 Home, Self Care Clinical Impression: Osteoarthritis Condition: Good Record reviewed to determine appropriate education?: Yes Instructions: ED Tendinitis Rotator Cuff Prescriptions: HYDROcod/ACETAM 5/325 [[place] 5/325] 0.5 tab PO Q6H PRN #15 tablet PRN Reason: Pain Comments: No evidence that the shoulder pain is related to your heart, EKG and heart labs were normal/unremarkable. Chest x-ray was normal. I am prescribing something you can take instead of the ibuprofen for the shoulder pain and reasonable for you to follow-up with orthopedics, see the number on this form for further evaluation and treatment. Return for new or worsening symptoms. I sent the prescription electronically [place] [facility] [place] I am prescribing a short course of narcotic pain medication for you. These are potentially dangerous and addictive medications that should be used carefully. These medications may constipate you. Take an loep-gna-ovgpacu stool softener (docusate) twice daily with plenty of water while taking these medications. If you go 24 hours without a bowel movement, take cgjr-ecf-yifbjbg miralax, per package instructions. Do not drink or drive while taking these medications. If you received narcotic or sedating medications while in the emergency department, do not drive for 24 hours. Store this medication in a safe, secure place and out of reach of children. It is a violation of federal law to give or sell this medication to another person or to use in a manner other than prescribed. The ED will not refill narcotic prescriptions, including prescriptions lost or stolen. To dispose of unwanted medications: 1. [facility] provides a drop box for medication in pill form only (no liquids) 8:00 am to 4:30 p.m. Friday-Friday in the lobby of the [facility], [address] [place] [address]. Empty pills into ziplock bag before disposal. Call [phone] for information. 2.[employer] is a free service available to all [facility] residents. Go to https://Outline.org/locations/[place]/ Note that many narcotic pain relievers also contain Tylenol/acetaminophen. Please ensure that your total dose of acetaminophen from all sources does not exceed 3 g (3000 mg) per day. Forms: PCP List
[2023-05-19 17:59] LABS: BASOPHILS % (AUTO) 0.2 %; EOSINOPHILS # (AUTO) 0.1 10^3/uL (0.0-0.7); EOSINOPHILS % (AUTO) 1.1 %; HCT - HEMATOCRIT 41.9 % (37.0-47.0); HGB - HEMOGLOBIN 14.3 g/dL (12.0-16.0); LYMPHOCYTES # (AUTO) 1.9 10^3/uL (1.5-3.5); LYMPHOCYTES % (AUTO) 30.2 %; MEAN CORPUSCULAR HEMOGLOBIN 31.6 pg (27.0-31.0); MEAN CORPUSCULAR HGB CONC 34.1 g/dL (32.0-36.0); MEAN CORPUSCULAR VOLUME 92.5 fL (81.0-99.0); MEAN PLATELET VOLUME 8.2 fL (7.9-10.8); MONOCYTES # (AUTO) 0.6 10^3/uL (0.0-1.0); MONOCYTES % (AUTO) 9.3 %; NEUTROPHILS # (AUTO) 3.7 10^3/uL (1.5-6.6); PLT - PLATELET COUNT 261 10^3/uL (130-450); RED BLOOD COUNT 4.53 10^6/uL (4.20-5.40); RED CELL DISTRIBUTION WIDTH 11.2 % (12.0-15.0); WHITE BLOOD COUNT 6.3 x10^3/uL (4.8-10.8)
[2023-05-19 18:17] LABS: ALBUMIN 4.4 g/dL (3.2-5.5); ALBUMIN/GLOBULIN RATIO 1.5 (1.0-2.2); BILIRUBIN,TOTAL 0.6 mg/dL (0.2-1.0); CALCIUM 9.4 mg/dL (8.5-10.3); CREATININE 0.4 mg/dL (0.6-1.3); POTASSIUM 4.1 mmol/L (3.5-4.5); TOTAL PROTEIN 7.3 g/dL (6.4-8.9)
[2023-05-19 18:19] LABS: TROPONIN I HIGH SENSITIVITY 5.2 ng/L (2.3-14.8)
[2023-05-19 18:58] VITALS: BP 150/82
== END 2023-05-19 18:49 | disposition home or self-care (01) ==
LOC: ED 16:51
DX: M19.012 Primary osteoarthritis, left shoulder (principal); I10 Essential (primary) hypertension
CPT/HCPCS: 36415; 80053; 83690; 84484; 85025; 93005; 99284

== ENCOUNTER 2023-07-16 09:09 | Outpatient (CLI) | payer MEDICARE, OTHER | END 2023-07-16 09:10 | disposition home or self-care (01) | LOC: DI 09:09 | PROVIDERS: ATTEND Nurse Practitioner Family | DX: R01.1 Cardiac murmur, unspecified (principal); I99.8 Other disorder of circulatory system; E78.5 Hyperlipidemia, unspecified; I10 Essential (primary) hypertension; I34.81 Nonrheumatic mitral (valve) annulus calcification | CPT/HCPCS: 93307 ==

== ENCOUNTER 2023-09-04 08:10 | Emergency (ER) | payer MEDICARE, OTHER ==
--- NOTE | 2023-09-04 09:12 | ED Physician Documentation ---
PD HPI BACK PAIN - Stated complaint Stated Complaint: RT LEG PX - Chief complaint Chief Complaint: Back Pain - History obtained from History obtained from: Patient - History of Present Illness Timing - onset: Yesterday Timing - duration: Days (1) Timing - details: Gradual onset, Still present Location: Lower, Right Quality: Pain, Spasm, Aching Associated symptoms: Other (pain radiates down back of thigh but not lower. Hurts with bending and twisting. No midline pain. Onset after helping lift and move furniture yesterday but not abrupt.). No: Fever, Weakness, Numbness Improves with: Rest. 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: Dilation and currettage - Present Medications Home Medications: Ambulatory Orders Medication Instructions Recorded Confirmed Alendronate [Fosamax] 70 mg PO .Q709/04/23 09/04/23 Lisinopril [Zestril] 40 mg PO DAILY 09/04/23 09/04/23 Simvastatin [Zocor] 5 mg PO DAILY 09/04/23 09/04/23 Tolterodine [Detrol LA] 4 mg PO DAILY 09/04/23 09/04/23 amLODIPine [Norvasc] 5 mg PO DAILY 09/04/23 09/04/23 - Allergies Allergies/Adverse Reactions: Allergies Allergy/AdvReac Type Severity Reaction Status Date / Time No Known Drug Allergies Allergy Verified 09/04/23 08:34 - Social History Does the pt smoke?: No Smoking Status: Never smoker Does the pt drink ETOH?: Yes Does the pt have substance abuse?: No - Immunizations Immunizations are current?: Yes - POLST Patient has POLST: No PD ED PE NORMAL - Vitals Vital signs reviewed: Yes - General General: Alert and oriented X 3, No acute distress (somewhat guarded ROM of the low back but not too badly. ), Well developed/nourished - Abdomen Abdomen: Soft, Non tender - Back Back: No CVA TTP, No spinal TTP, Other (tender in upper right gluteal area and at upper SI area without focal triggerpoint area. Not really tender in lumbar area and no vertebral tenderness. ) - Neuro Neuro: Alert and oriented X 3, No motor deficit, No sensory deficit, Other (normal pattelar reflexes. ) Results - Vitals Vitals: Oxygen O2 Source Room air - Rads (name of study) right hip with pelvis Relevant Findings:: Prelim report reviewed (no acute process. ), EMP independent interpretation of test PD Medical Decision Making - ED course Complexity details: reviewed results (pt was more concerned about hip and pelvis than back. Can get xray at her request. Does not sound likely fracture. ), considered differential (patient with gluteal/lower bakc pain on right after lifting furniture yesterday (onset later and not during the lifting per se). ), d/w patient Departure - Departure Disposition: 01 Home, Self Care Clinical Impression: Hip strain Qualifiers: Encounter type: initial encounter Laterality: right Qualified Code(s): S76.011A - Strain of muscle, fascia and tendon of right hip, initial encounter Condition: Stable Record reviewed to determine appropriate education?: Yes Instructions: ED Sprain Hip Comments: Your x-ray appears normal. No signs of bony abnormality. Presume a muscle strain in the area. I would suggest some anti-inflammatory such as ibuprofen or naproxen like you took that this morning. I would have you do take similar dosing 3 times daily for the next several days to week. Add Tylenol every 4-6 hours if needed for pain. Activity as tolerated. I would anticipate improvement over the next several days to week. Recheck if not better in that timeframe or sooner if other symptoms develop or worsening. Discharge Date/Time: 09/04/23 10:42
[2023-09-04] MEDS: ACETAMINOPHEN 500 MG TABLET PO STA (09:46)
--- NOTE | 2023-09-04 10:06 | XRAY Report ---
PROCEDURE: Hip w/Pelvis 2-3V RT INDICATIONS: hip pain after lifting/twist TECHNIQUE: 2 views of the hip were acquired. COMPARISON: X-ray lumbar spine 05/12/2023 FINDINGS: Bones: No fractures or dislocations. No suspicious bony lesions. Moderate bilateral degenerative hip joint space narrowing as well as degenerative changes in the lower lumbar spine. Minimal particul ar osteophytes. No erosions. Soft tissues: No suspicious soft tissue calcifications or masses. IMPRESSION: Arthritic changes as above. Reviewed by: Sade Reynoso MD on 09/04/2023 10:04 AM PDT Approved by: Sade Reynoso MD on 09/04/2023 10:04 AM PDT Station ID: [id number]
[2023-09-04 10:50] VITALS: BP 133/83; O2SAT 94
== END 2023-09-04 10:42 | disposition home or self-care (01) ==
LOC: ED 08:10
DX: S76.011A Strain of muscle, fascia and tendon of right hip, initial encounter (principal); X58.XXXA Exposure to other specified factors, initial encounter; I10 Essential (primary) hypertension
CPT/HCPCS: 73502; 99283; A9270